=== PATIENT | male | born 1955 | race Caucasian/White ===

== ENCOUNTER 2018-09-07 07:55 | Day surgery (SDC) | payer BC, OTHER ==
[2018-09-07] MEDS: Lactated Ringers 1,000 ML IV SCH (08:30)
[2018-09-07] MEDS ORDERED: fentaNYL 100 MCG/2 ML SDV ONE (09:08)
[2018-09-07] MEDS ORDERED: Propofol 200 MG/20 ML SDV ONE (09:08)
--- NOTE | 2018-09-07 11:37 | OR ---
PREOPERATIVE DIAGNOSIS: Family history of colon cancer. POSTOPERATIVE DIAGNOSIS: Family history of colon cancer. PROCEDURE PERFORMED: Colonoscopy. INDICATION: The patient is a 62-year-old male with a previous family history of colon cancer. His last colonoscopy was 10 years ago and was normal, presents for colonoscopy at this time. PROCEDURE IN DETAIL: This was done in the endoscopy suite. Sedation was given per Anesthesia. He was placed in left lateral position. First, a rectal exam was done and was normal. Scope was introduced into the rectum and slowly advanced to the rectum, sigmoid, descending, transverse, and ascending colon until the cecum was reached. Upon reaching the cecum, scope was slowly withdrawn looking all mucosal surface on the way out. No mucosal abnormalities, lesions, or polyps were noted. He did have moderate sigmoid diverticulosis. FINAL DIAGNOSIS: Sigmoid diverticulosis. Repeat colonoscopy in 10 years' time. BKD: 09/07/2018 09:47:32 MODL: 09/07/2018 11:18:29 /[id number]
== END 2018-09-07 10:35 | disposition home or self-care (01) ==
LOC: VM.SDS 07:55
PROVIDERS: ATTEND Surgery
DX: Z12.11 Encounter for screening for malignant neoplasm of colon (principal); K57.30 Diverticulosis of large intestine without perforation or abscess without bleeding; Z80.0 Family history of malignant neoplasm of digestive organs
CPT/HCPCS: J2704; J3010; J7120

== ENCOUNTER 2022-03-26 19:14 | Emergency (ER) | payer OTHER ==
[2022-03-26] MEDS ORDERED: Lidocaine 1% 5 ML VIAL INJECT ONE (19:37)
== END 2022-03-26 20:22 | disposition home or self-care (01) ==
LOC: VM.ED 19:14
DX: S61.216A Laceration without foreign body of right little finger without damage to nail, initial encounter (principal); S61.214A Laceration without foreign body of right ring finger without damage to nail, initial encounter; W26.8XXA Contact with other sharp object(s), not elsewhere classified, initial encounter
CPT/HCPCS: 12001; 99282; 99283